=== PATIENT | male | born 1985 | race Two or more races ===

== ENCOUNTER 2019-10-27 16:51 | Emergency (ER) | payer SELFPAY ==
[~2019-10-27] VITALS: Ht 172.7 cm; Wt 90.0 kg
[2019-10-27 17:05] VITALS: BP 140/86
== END 2019-10-27 19:00 | disposition left against medical advice (07) ==
LOC: ER 16:51
DX: F10.229 Alcohol dependence with intoxication, unspecified (principal); Y90.9 Presence of alcohol in blood, level not specified; R03.0 Elevated blood-pressure reading, without diagnosis of hypertension; R32 Unspecified urinary incontinence
CPT/HCPCS: 80305; 99283

== ENCOUNTER 2021-05-23 12:12 | Inpatient (IN) | payer MEDICAID, OTHER ==
[~2021-05-23] VITALS: Ht 170.2 cm; Wt 65.3 kg
[2021-05-23] MEDS ORDERED: SODIUM CHLORIDE 0.9% 1,000 ML IV ONE (12:45)
[2021-05-23 12:55] LABS: HEMATOCRIT. 39.6 % (42.0-52.0); HEMOGLOBIN. 13.5 g/dL (14.0-18.0); MEAN CORPUSCULAR HEMOGLOBIN 34.7 pg (28.0-32.0); MEAN CORPUSCULAR VOLUME 101.7 fL (80.0-94.0); PLATELET 53 x1000/uL (130-400); RED BLOOD CELL COUNT 3.89 mill/uL (4.7-6.1)
[2021-05-23 13:02] LABS: CHLORIDE 92 mEq/L (98-107)
[2021-05-23 13:09] LABS: ETHANOL BLOOD < 10 mg/dL
[2021-05-23 13:26] LABS: NUCLEATED RED BLOOD CELLS 1 /100 WBC; PLATELET ESTIMATE DECREASED
[2021-05-23 15:47] LABS: BG BASE EXCESS -11.6 mmol/L (-2.0-2.0); BG DEOXYHEMOGLOBIN 2.9 % (0.0-5.0); BG FRACTION INSPIRED OXYGEN 21; BG HCO3 ACT 12.8 mmol/L (22.0-26.0); BG METHEMOGLOBIN 0.3 % (0.0-1.5); BG OXYGEN SATURATION 97.1 % (92.0-98.5); BG OXYHEMOGLOBIN 96.8 % (94.0-97.0); BG PCO2 25.2 mmHg (35.0-45.0); BG PH 7.322 (7.350-7.450); BG PO2 105.8 mmHg (75.0-100.0); BG SAMPLE SITE RIGHT BRACHIAL; BG TOTAL HEMOGLOBIN 12.7 g/dL (12.0-18.0); BG VENT MODE ROOM AIR
[2021-05-23 16:10] LABS: CLARITY URINE CLEAR (CLEAR); COLOR URINE ORANGE (YELLOW); KETONES URINE 3+ (NEGATIVE); LEUKOCYTE ESTERASE URINE 1+ (NEGATIVE); NITRITE URINE POSITIVE (NEGATIVE); OCCULT BLOOD URINE TRACE (NEGATIVE); PROTEIN URINE TRACE (NEGATIVE); SPECIFIC GRAVITY URINE 1.026 (1.005-1.030)
[2021-05-23] MEDS ORDERED: CEFTRIAXONE 1 G PREMIX 50 ML IV ONE (16:15)
[2021-05-23 16:29] LABS: *AMPHETAMINES SCREEN URINE NEGATIVE (NEGATIVE); *BARBITURATES SCREEN URINE NEGATIVE (NEGATIVE); PHENCYCLIDINE URINE SCREEN NEGATIVE (NEGATIVE)
[2021-05-23 16:30] LABS: *BENZODIAZEPINES SCREEN URINE NEGATIVE (NEGATIVE); *COCAINE SCREEN URINE NEGATIVE (NEGATIVE); CANNABINOID URINE SCREEN NEGATIVE (NEGATIVE); METHADONE URINE SCREEN NEGATIVE (NEGATIVE); OPIATES URINE SCREEN NEGATIVE (NEGATIVE)
[2021-05-23] MEDS ORDERED: FOLIC ACID 1 MG, THIAMINE HCL 100 MG, MVI, ADULT NO.1 10 ML in DEXTROSE 5% WATER 1,000 ML IV ONE (16:30)
[2021-05-23 16:40] LABS: BETA HYDROXYBUTYRATE 9.6 mMol/L (0.0-0.3)
[2021-05-23 16:54] LABS: CREATINE KINASE 1221 IU/L (39-308)
[2021-05-23] MEDS ORDERED: ONDANSETRON HCL 4MG/2ML INJ IV PRN (20:45)
[2021-05-23] MEDS ORDERED: SODIUM BICARBONATE 8.4% 1 MEQ/ML 50ML SYR IV NR (20:45)
[2021-05-23] MEDS ORDERED: MAGNESIUM/ALUMINUM HYDROXIDE/SIMETHICONE 30ML UDC PO PRN (20:45)
[2021-05-23] MEDS: SODIUM CHLORIDE 0.9% 1,000 ML IV SCH ×2 (21:22→23:20)
[2021-05-23] MEDS: LORAZEPAM 2MG/ML CPJ IV PRN (21:22)
[2021-05-23] MEDS ORDERED: MVI, ADULT NO.1 10 ML, FOLIC ACID 1 MG, THIAMINE HCL 100 MG in SODIUM CHLORIDE 0.9% 1,0... IV ONE (22:00)
[2021-05-23 22:05] VITALS: BP 160/85
[2021-05-23 22:30] VITALS: BP 160/85
[2021-05-24 04:00] VITALS: BP 101/67
[2021-05-24 07:56] VITALS: BP 97/68
[2021-05-24] MEDS ORDERED: PNEUMOCOCCAL 23-VAL P-SAC VAC 0.5 ML IM ONE (10:00)
[2021-05-24] MEDS ORDERED: INFLUENZA VACCINE 05/PF 0.5 ML SYRINGE IM ONE (10:00)
[2021-05-24 12:08] VITALS: BP 112/80
[2021-05-24] MEDS: MULTIVITAMINS,THER W-MINERALS TABLET PO SCH (12:33)
[2021-05-24] MEDS: THIAMINE HCL 100MG TABLET PO SCH (12:33)
[2021-05-24 16:16] VITALS: BP 127/85
[2021-05-24] MEDS: SODIUM CHLORIDE 0.9% 1,000 ML IV SCH ×2 (16:39→16:40)
[2021-05-24 20:00] VITALS: BP 145/90
[2021-05-24 23:53] LABS: HEMATOCRIT. 29.2 % (42.0-52.0); HEMOGLOBIN. 10.2 g/dL (14.0-18.0); MEAN CORPUSCULAR HEMOGLOBIN 34.5 pg (28.0-32.0); MEAN CORPUSCULAR VOLUME 99.1 fL (80.0-94.0); MEAN PLATELET VOLUME 11.5 fl (7.4-10.4); RED BLOOD CELL COUNT 2.94 mill/uL (4.7-6.1)
[2021-05-25] VITALS: BP 127/75
[2021-05-25 00:14] LABS: PLATELET 42 x1000/uL (130-400)
[2021-05-25 00:16] LABS: CHLORIDE 103 mEq/L (98-107)
[2021-05-25 04:00] VITALS: BP 113/76
[2021-05-25 05:28] LABS: PLATELET ESTIMATE DECREASED
[2021-05-25] MEDS: SODIUM CHLORIDE 0.9% 1,000 ML IV SCH ×2 (06:12→21:28)
[2021-05-25 08:00] VITALS: BP 126/79
[2021-05-25] MEDS: MULTIVITAMINS,THER W-MINERALS TABLET PO SCH (08:43)
[2021-05-25] MEDS: THIAMINE HCL 100MG TABLET PO SCH (08:43)
[2021-05-25] MEDS ORDERED: POTASSIUM CHLORIDE 20MEQ TABLET SR PO SCH (09:00)
[2021-05-25 12:00] VITALS: BP 145/73
[2021-05-25 16:00] VITALS: BP 145/79
[2021-05-25 20:00] VITALS: BP 124/81
[2021-05-26] VITALS: BP 116/70
[2021-05-26 04:00] VITALS: BP 128/88
[2021-05-26 08:00] VITALS: BP_SYST 117; BP_SYST 125; BP_DIAS 80; BP_DIAS 92
[2021-05-26] MEDS: MULTIVITAMINS,THER W-MINERALS TABLET PO SCH (09:29)
[2021-05-26] MEDS: THIAMINE HCL 100MG TABLET PO SCH (09:29)
[2021-05-26 12:00] VITALS: BP 118/84
[2021-05-26 12:19] LABS: HEMATOCRIT. 31.8 % (42.0-52.0); HEMOGLOBIN. 10.9 g/dL (14.0-18.0); MEAN CORPUSCULAR HEMOGLOBIN 34.6 pg (28.0-32.0); MEAN CORPUSCULAR VOLUME 100.5 fL (80.0-94.0); PLATELET 58 x1000/uL (130-400); RED BLOOD CELL COUNT 3.17 mill/uL (4.7-6.1)
[2021-05-26 12:27] LABS: CHLORIDE 105 mEq/L (98-107)
[2021-05-26] MEDS: NYSTATIN POWDER 15GM TOP SCH ×2 (13:13→21:36)
[2021-05-26] MEDS ORDERED: POTASSIUM CHLORIDE INJ 40 MEQ in DEXT 5% WATER 250 ML IV ONE (13:15)
[2021-05-26] MEDS ORDERED: POTASSIUM CHLORIDE 20MEQ TABLET SR PO NR (13:30)
[2021-05-26 13:36] LABS: PLATELET ESTIMATE DECREASED
[2021-05-26] MEDS ORDERED: KCL 20MEQ/100ML PREMIX 100 ML IV NR ×2 (14:00→17:00)
[2021-05-26 16:00] VITALS: BP 125/92
[2021-05-26 20:00] VITALS: BP 114/78
[2021-05-27] VITALS: BP 114/81
[2021-05-27 04:00] VITALS: BP_SYST 114; BP_SYST 120; BP_DIAS 61; BP_DIAS 81
[2021-05-27 08:05] VITALS: BP 121/87
[2021-05-27] MEDS: LORAZEPAM 2MG/ML CPJ IV PRN ×3 (08:19→17:41)
[2021-05-27] MEDS: MULTIVITAMINS,THER W-MINERALS TABLET PO SCH (08:19)
[2021-05-27] MEDS: NYSTATIN POWDER 15GM TOP SCH ×2 (08:20→21:40)
[2021-05-27] MEDS: THIAMINE HCL 100MG TABLET PO SCH (08:20)
[2021-05-27 11:44] VITALS: BP 133/96
[2021-05-27 16:16] VITALS: BP 125/85
[2021-05-27 16:42] LABS: CHLORIDE 104 mEq/L (98-107)
[2021-05-27] MEDS: CHLORDIAZEPOXIDE 25MG CAPSULE PO SCH (17:08)
[2021-05-27] MEDS ORDERED: POTASSIUM CHLORIDE 20MEQ TABLET SR PO NR (17:30)
[2021-05-27 20:00] VITALS: BP 122/80
[2021-05-28] VITALS: BP 138/66
[2021-05-28 04:00] VITALS: BP 121/87
[2021-05-28 08:11] VITALS: BP 86/69
[2021-05-28] MEDS: NYSTATIN POWDER 15GM TOP SCH ×2 (09:00→21:25)
[2021-05-28] MEDS: CHLORDIAZEPOXIDE 25MG CAPSULE PO SCH ×3 (09:51→17:29)
[2021-05-28] MEDS: MULTIVITAMINS,THER W-MINERALS TABLET PO SCH (09:51)
[2021-05-28] MEDS: THIAMINE HCL 100MG TABLET PO SCH (09:51)
[2021-05-28 12:35] VITALS: BP 113/77
[2021-05-28] MEDS ORDERED: LORAZEPAM 2MG/ML CPJ IV PRN (12:45)
[2021-05-28] MEDS: FOLIC ACID 1MG TABLET PO SCH (14:18)
[2021-05-28 16:18] VITALS: BP 110/75
[2021-05-28 20:00] VITALS: BP 145/91
[2021-05-29] VITALS (7 sets, daily range): BP systolic 100–127; BP diastolic 71–90
[2021-05-29] MEDS: NYSTATIN POWDER 15GM TOP SCH ×2 (08:25→22:38)
[2021-05-29] MEDS: FOLIC ACID 1MG TABLET PO SCH (08:26)
[2021-05-29] MEDS: CHLORDIAZEPOXIDE 25MG CAPSULE PO SCH ×3 (08:26→17:38)
[2021-05-29] MEDS: MULTIVITAMINS,THER W-MINERALS TABLET PO SCH (08:26)
[2021-05-29] MEDS: THIAMINE HCL 100MG TABLET PO SCH (08:26)
[2021-05-30 00:06] VITALS: BP 123/97
[2021-05-30 04:00] VITALS: BP 124/69
[2021-05-30] MEDS: THIAMINE HCL 100MG TABLET PO SCH (09:25)
[2021-05-30] MEDS: CHLORDIAZEPOXIDE 25MG CAPSULE PO SCH ×3 (09:25→17:33)
[2021-05-30] MEDS: FOLIC ACID 1MG TABLET PO SCH (09:25)
[2021-05-30] MEDS: MULTIVITAMINS,THER W-MINERALS TABLET PO SCH (09:25)
[2021-05-30] MEDS: NYSTATIN POWDER 15GM TOP SCH ×2 (09:28→21:21)
[2021-05-30 09:33] VITALS: BP 121/81
[2021-05-30 13:00] VITALS: BP 121/79
[2021-05-30 16:00] VITALS: BP 128/74
[2021-05-30 20:00] VITALS: BP 113/81
[2021-05-31] VITALS: BP 118/76
[2021-05-31 04:00] VITALS: BP 119/76
[2021-05-31 08:00] VITALS: BP 117/81
[2021-05-31] MEDS: FOLIC ACID 1MG TABLET PO SCH (09:54)
[2021-05-31] MEDS: CHLORDIAZEPOXIDE 25MG CAPSULE PO SCH ×3 (09:54→17:16)
[2021-05-31] MEDS: NYSTATIN POWDER 15GM TOP SCH ×2 (09:54→21:53)
[2021-05-31] MEDS: THIAMINE HCL 100MG TABLET PO SCH (09:54)
[2021-05-31] MEDS: MULTIVITAMINS,THER W-MINERALS TABLET PO SCH (09:54)
[2021-05-31 12:00] VITALS: BP 116/86
[2021-05-31 16:00] VITALS: BP 118/87
[2021-05-31 20:00] VITALS: BP 107/78
[2021-06-01] VITALS: BP 134/74
[2021-06-01 04:00] VITALS: BP 118/87
[2021-06-01] MEDS: CHLORDIAZEPOXIDE 25MG CAPSULE PO SCH ×2 (08:42→13:23)
[2021-06-01] MEDS: THIAMINE HCL 100MG TABLET PO SCH (08:42)
[2021-06-01] MEDS: MULTIVITAMINS,THER W-MINERALS TABLET PO SCH (08:42)
[2021-06-01] MEDS: FOLIC ACID 1MG TABLET PO SCH (08:42)
[2021-06-01] MEDS: NYSTATIN POWDER 15GM TOP SCH (08:44)
[2021-06-01 08:47] VITALS: BP 130/90
[2021-06-01 12:13] VITALS: BP 110/78
[2021-06-01 13:29] VITALS: BP 110/78
== END 2021-06-01 15:23 | disposition home or self-care (01) | DRG 463 ==
LOC: ER 12:12 → EDBEDREQTM 18:23 → EDBEDREQ 18:23 → ENRESERV 21:15 → 6WST 22:12
PROVIDERS: ADMIT Hospitalist; ATTEND Hospitalist
PROC: 0HBRXZZ Excision of Toe Nail, External Approach (ICD-10-PCS; principal; 2021-05-24)
PROC: 0HBRXZZ Excision of Toe Nail, External Approach (ICD-10-PCS; 2021-05-27)
PROC: 0HBRXZZ Excision of Toe Nail, External Approach (ICD-10-PCS; 2021-05-27)
PROC: 0HBRXZZ Excision of Toe Nail, External Approach (ICD-10-PCS; 2021-05-27)
PROC: 0HBRXZZ Excision of Toe Nail, External Approach (ICD-10-PCS; 2021-05-27)
PROC: 0HBRXZZ Excision of Toe Nail, External Approach (ICD-10-PCS; 2021-05-27)
PROC: 0HBRXZZ Excision of Toe Nail, External Approach (ICD-10-PCS; 2021-05-27)
PROC: 0HBRXZZ Excision of Toe Nail, External Approach (ICD-10-PCS; 2021-05-27)
PROC: 0HBRXZZ Excision of Toe Nail, External Approach (ICD-10-PCS; 2021-05-27)
PROC: 0HBRXZZ Excision of Toe Nail, External Approach (ICD-10-PCS; 2021-05-27)
DX: N39.0 Urinary tract infection, site not specified (principal); E87.2 Acidosis; D69.6 Thrombocytopenia, unspecified; F22 Delusional disorders; B36.8 Other specified superficial mycoses; E87.6 Hypokalemia; K70.9 Alcoholic liver disease, unspecified; M79.604 Pain in right leg; R53.1 Weakness; S92.422A Displaced fracture of distal phalanx of left great toe, initial encounter for closed fracture; S92.522A Displaced fracture of middle phalanx of left lesser toe(s), initial encounter for closed fracture; L60.3 Nail dystrophy; R58 Hemorrhage, not elsewhere classified; M79.605 Pain in left leg; F10.239 Alcohol dependence with withdrawal, unspecified; Y90.0 Blood alcohol level of less than 20 mg/100 ml; R26.89 Other abnormalities of gait and mobility; S90.415A Abrasion, left lesser toe(s), initial encounter; X58.XXXA Exposure to other specified factors, initial encounter; Z20.822 Contact with and (suspected) exposure to COVID-19; Y93.89 Activity, other specified; Y92.89 Other specified places as the place of occurrence of the external cause; Y99.8 Other external cause status; Z72.0 Tobacco use; Z71.6 Tobacco abuse counseling; Z59.00 Homelessness unspecified
CPT/HCPCS: 36415; 36600; 73590; 73630; 74176; 80048; 80053; 80305; 80307; 80320; 80329; 81003; 82010; 82140; 82375; 82550; 82805; 82962; 84443; 84484; 85025; 87426; 93005; 93970; 97162; 99285; A6261; C1893; J0696; J2060; J3411; J3480; J3490; J7030; J7040; J7070; G0480